=== PATIENT | male | born 1980 | race Caucasian/White ===

== ENCOUNTER 2019-04-22 12:50 | Outpatient (CLI) | payer OTHER ==
[2019-04-22] MEDS ORDERED: GADOBUTROL 10 MMOL/10 ML VIAL ONE (13:45)
[2019-04-22] MEDS ORDERED: GADOBUTROL 10 MMOL/10 ML VIAL IVP ONE (14:08)
--- NOTE | 2019-04-23 07:56 | MRI Report ---
Reason: LT FACIAL NUMBNESS Procedure Date: 04/22/2019 Accession Number: [id number] / [id number] Procedure: MRI - Brain W/WO CPT Code: Final Report FULL RESULT: EXAM: MRI BRAIN WITHOUT AND WITH CONTRAST EXAM DATE: 04/22/2019 02:14 PM. CLINICAL HISTORY: Left facial numbness. COMPARISON: None. TECHNIQUE: Multiplanar, multisequence T1-weighted and fluid-sensitive MR sequences of the brain were performed before and after administration of intravenous contrast. Sequences optimized for routine evaluation. Other: None. IV Contrast: 10 mL Gadavist. FINDINGS: Brain Volume: Normal for age. Parenchyma: No acute hemorrhage, mass, or infarct. A 12 mm wedge-shaped focus of decreased T1 and increased FLAIR signal is seen in the anterior left putamen. Patchy similar signal abnormality is seen in the left [place] radiata superior to the left lentiform nucleus. No abnormal enhancement. Skull Base: No abnormal dural thickening or enhancement. The floor of the middle cranial fossa is intact. The foramen ovale and infratemporal fossa are unremarkable. The foramen rotundum and pterygopalatine fossa are unremarkable. The cisternal segment of trigeminal nerves as well as Meckel's cave are symmetric and unremarkable. The skull base of the posterior fossa is intact. The jugular foramen and hypoglossal canal are unremarkable. Ventricles/Cisterns: Mild ventriculomegaly is seen. Enlargement of the superior and posterior lateral ventricles is seen without dilatation of the temporal horns. No transependymal CSF flow is appreciated. No abnormal extra-axial fluid collection or hemorrhage. Orbits: Note is made of disconjugate gaze. Orbits are otherwise unremarkable. Sella Turcica: The pituitary gland, cavernous sinuses, suprasellar cistern and optic chiasm are unremarkable. IAC: Symmetric and unremarkable. Vasculature: Normal signal flow void is seen in the major arterial structures at the skull base. The dural sinuses are patent and enhance normally. Sinuses: No acute sinus disease. Bones: Oval 7 mm focus of expansile signal abnormality is seen in the lateral right supraorbital ridge. This demonstrates increased T2/FLAIR signal. Isointense T1 signal with enhancement is noted. Overlying cortical thinning is present. Other: The visualized nasopharynx and infratemporal fossa are unremarkable. IMPRESSION: 1. No acute intracranial abnormality. No abnormal enhancement. 2. Wedge-shaped focus of signal abnormality in the anterior left putamen. Patchy signal abnormality in the left [place] radiata superior to the left lentiform nucleus. This may represent sequela of old ischemia. 3. Ventriculomegaly with prominence to the lateral ventricles. Findings may be secondary to central atrophy. Compensated hydrocephalus could be considered as well. No transependymal CSF flow or temporal horn dilatation is seen to suggest acute hydrocephalus. 4. 7 mm focus of bone marrow signal abnormality in the lateral right supraorbital ridge. This may represent benign process such as hemangioma. If the patient has an oncologic history, correlation with bone scan could be considered. RADIA
== END 2019-04-22 12:51 | disposition home or self-care (01) ==
LOC: DI 12:50
PROVIDERS: ATTEND Family Medicine
DX: G93.89 Other specified disorders of brain (principal); R20.0 Anesthesia of skin
CPT/HCPCS: 70553; A9585

== ENCOUNTER 2019-05-16 17:16 | Outpatient (CLI) | payer OTHER ==
[2019-05-16] MEDS ORDERED: GADOBUTROL 10 MMOL/10 ML VIAL ONE (18:42)
[2019-05-16] MEDS ORDERED: GADOBUTROL 10 MMOL/10 ML VIAL IVP ONE (18:55)
--- NOTE | 2019-05-17 22:38 | MRI Report ---
Reason: PARESTHESIA, FATIGUE, WEAKNESS Procedure Date: 05/16/2019 Accession Number: [id number] / [id number] Procedure: MRI - Cervical Spine W/WO CPT Code: Final Report FULL RESULT: EXAM: MRI CERVICAL SPINE WITHOUT AND WITH CONTRAST EXAM DATE: 05/16/2019 07:17 PM. CLINICAL HISTORY: Paresthesia, fatigue, weakness. COMPARISON: Brain MRI 04/22/2019. TECHNIQUE: Multiplanar, multisequence T1-weighted and fluid-sensitive sequences of the cervical spine before and after administration of intravenous contrast. Other: None. IV contrast: 10 mL Gadavist. FINDINGS: Evaluation mildly limited due to motion artifact, particularly on the axial sequences. Neurologic Structures: The visualized posterior fossa structures are unremarkable. Prominent lateral ventricles partially visualized on the digester cook sequence. This was present on prior brain MRI. No gross signal abnormality visualized in the cervical cord, however, evaluation limited due to artifact. Alignment: Straightening of the normal cervical lordosis. No spondylolisthesis. Bone Marrow: No gross fractures or bone lesions. Mild degenerative endplate edema at C6-C7, asymmetric to the right. Underlying congenital central canal stenosis with osseous diameter at C3 measuring 12 mm. Interspace Levels/Facets: C1-C2: Mild degenerative changes anteriorly. C2-C3: Minimal disk osteophyte complex. Mild facet hypertrophy. Minimal central canal stenosis. Mild bilateral neural foramen stenosis. C3-C4: Small disk osteophyte complex. Mild facet hypertrophy. Minimal central canal stenosis. Moderate right and mild left neural foramen stenosis. C4-C5: Small disk osteophyte complex. Mild facet hypertrophy. Minimal central canal stenosis. Moderate right and mild left neural foramen stenosis. C5-C6: Mild disk height loss. Small disk osteophyte complex. Mild facet hypertrophy. Minimal central canal stenosis. Mild bilateral neural foramen stenosis. C6-C7: Mild disk height loss. Small to moderate disk osteophyte complex. Mild facet hypertrophy. Mild central canal stenosis with mass effect on the cervical cord. Moderate right and mild left neural foramen stenosis. C7-T1: Small disk osteophyte complex. Mild facet hypertrophy. Minimal central canal stenosis. Moderate right and mild left neural foramen stenosis. Spinal Canal: No enhancing lesions within the spinal canal. No epidural abscess. Musculature: No edema, enhancement, or fatty atrophy. Other: The paravertebral and prevertebral soft tissues are unremarkable. IMPRESSION: 1. Underlying congenital central canal stenosis. 2. Mild to moderate degenerative disk and facet changes. 3. Mild central canal stenosis at C6-C7. Minimal canal stenosis throughout the remaining levels. 4. Varying degrees of neural foramen stenosis, moderate at C3-C4 on the right, C4-C5 on the right and C6-C7 on the right. 5. Limited evaluation for cord signal abnormality due to artifact. No gross signal abnormality visualized. RADIA
--- NOTE | 2019-05-17 22:40 | MRI Report ---
Reason: PARESTHESIA, FATIGUE, WEAKNESS Procedure Date: 05/16/2019 Accession Number: [id number] / [id number] Procedure: MRI - Thoracic Spine W/WO CPT Code: Final Report FULL RESULT: EXAM: MRI THORACIC SPINE WITHOUT AND WITH CONTRAST EXAM DATE: 05/16/2019 07:15 PM. CLINICAL HISTORY: Paresthesia, fatigue, weakness. COMPARISONS: MRI brain 04/22/2019. TECHNIQUE: Multiplanar, multisequence T1-weighted and fluid-sensitive sequences of the thoracic spine from C7 to L1 before and after administration of intravenous contrast. Other: None. IV contrast: 10 mL Gadavist. FINDINGS: Evaluation on the axial sequence is mildly limited due to motion and artifact. Spinal Cord: No gross signal abnormality visualized in the cervical cord. Evaluation on the axial sequence is limited due to artifact. Alignment: Mild S-Shaped cervicothoracic curvature with complex left component lower cervical and convex-right component of her thoracic spine. No spondylolisthesis. Bone Marrow: No gross fracture. Small Schmorl's nodes at multiple levels. Subtle bone marrow edema and enhancement at the anterior inferior aspect T7 vertebral body with subtle endplate irregularity. Moderate bone marrow edema and enhancement at the anterior inferior aspect of T8 vertebral body. Possible subtle endplate irregularity at this site. Subtle fatty changes at the superior endplate of T11. Disk Levels/Facets: Mild degenerative disk and facet changes throughout the thoracic spine. Small left paracentral disk protrusion at T4-T5 contributes to minimal central canal stenosis with subtle mass effect on the thoracic cord. Disk osteophyte complexes and facet hypertrophy at T8-T9, T9-T10, and T10-T11 contribute to minimal central canal stenosis. Spinal Canal: No enhancing masses within the spinal canal. No epidural abscess. Musculature: No edema, enhancement, or fatty atrophy. Other: The visualized lungs, mediastinum, and abdominal cavity are unremarkable. IMPRESSION: 1. Mild degenerative disk and facet changes in the thoracic spine. 2. Small left paracentral disk protrusion at T4-T5 contributes to minimal central canal stenosis. 3. Disk osteophyte complexes and facet hypertrophy at T8-T9, T9-T10, and T10-T11 contribute to minimal central canal stenosis. RADIA
== END 2019-05-16 17:17 | disposition home or self-care (01) ==
LOC: DI 17:16
PROVIDERS: ATTEND Psychiatry & Neurology Neurology
DX: M50.322 Other cervical disc degeneration at C5-C6 level (principal); M48.02 Spinal stenosis, cervical region; M47.812 Spondylosis without myelopathy or radiculopathy, cervical region; M51.24 Other intervertebral disc displacement, thoracic region; M47.814 Spondylosis without myelopathy or radiculopathy, thoracic region; M48.04 Spinal stenosis, thoracic region
CPT/HCPCS: 72156; 72157; A9585

== ENCOUNTER 2022-10-30 08:24 | Outpatient (CLI) | payer OTHER | END 2022-10-30 08:25 | disposition home or self-care (01) | LOC: LAB.N 08:24 | PROVIDERS: ATTEND Family Medicine | DX: R68.82 Decreased libido (principal) | CPT/HCPCS: 36415; 84403 ==

== ENCOUNTER 2022-11-16 11:58 | Outpatient (CLI) | payer OTHER | END 2022-11-16 11:59 | disposition home or self-care (01) | LOC: LAB.N 11:58 | PROVIDERS: ATTEND Family Medicine | DX: R68.82 Decreased libido (principal) | CPT/HCPCS: 36415; 84403 ==

== ENCOUNTER 2022-12-05 11:08 | Outpatient (CLI) | payer OTHER | END 2022-12-05 11:09 | disposition home or self-care (01) | LOC: LAB.N 11:08 | PROVIDERS: ATTEND Family Medicine | DX: R68.82 Decreased libido (principal) | CPT/HCPCS: 36415; 83002; 84403 ==

== ENCOUNTER 2023-12-07 05:31 | Emergency (ER) | payer OTHER ==
--- NOTE | 2023-12-07 05:44 | ED Physician Documentation ---
PD HPI HEAD INJURY - Stated complaint Stated Complaint: L EYE LAC - Chief complaint Chief Complaint: Laceration - History obtained from History obtained from: Patient - History of Present Illness Mechanism of head injury: Laceration (his cat was caught in a cat trap and it got anxious as he released it (there had been a stray outside that he was trying to capture instead) and scratched/bit at his. Several small lacs/punctures on forehead and cheek. But main laceration is left upper eyelid norizontally. pt denies injury to eye.) Where head injury occurred: Home Timing - onset: How many hours ago (1), Today (he did clean the laceration after it and then here for eval/presume suturing.) Location of injury: Left Associated symptoms: No: LOC, AMS Contributing factors: No: Anticoagulated PD PAST MEDICAL HISTORY - Past Medical History Past Medical History: No - Past Surgical History Past Surgical History: No - Present Medications Home Medications: Ambulatory Orders Medication Instructions Recorded Confirmed Amox/Clav 875/125 [Augmentin] 1 each PO BID #10 tablet 12/07/23 - Allergies Allergies/Adverse Reactions: Allergies Allergy/AdvReac Type Severity Reaction Status Date / Time No Known Drug Allergies Allergy Verified 12/07/23 05:39 - Social History Does the pt smoke?: No Smoking Status: Never smoker - Immunizations Immunizations are current?: Yes PD ED PE NORMAL - Vitals Vital signs reviewed: Yes - General General: Alert and oriented X 3, No acute distress, Well developed/nourished - HEENT HEENT: PERRL, EOMI (no pain with eye movement. ), Other (left eyelid with laceration full thickness skin with edges slightly apart, and mild bleeding. Horizontally oriented, 3 cm (the width of the eyelid). Not full thickness through lid (no lac inside). no FB. He can blink fine. small lac forehead and lateral periorbital. ) Results - Vitals Vitals: Vital Signs - 24 hr 12/07/23 12/07/23 05:37 06:38 Temperature 36.1 C L Heart Rate 80 78 Respiratory 16 18 Rate Blood Pressure 188/98 H 178/95 H O2 Saturation 98 99 Oxygen O2 Source Room air Procedures - Laceration (location) left upper eyelid Length in cm: 3 Wound type: Linear, Into subcut fat, Clean Neurovascular status: Sensory intact, Motor intact Anesthesia: Lidocaine 1% with epi Wound preparation: Wound explored, To the base, Other (washed with tap water) Skin layer closure: Nylon, Running, Size #-0 - enter number (6), Sutures - enter # (15) Other: Patient tolerated well, No complications, Neurovascular intact, Tetanus UTD PD Medical Decision Making - ED course Complexity details: considered differential (lac upper eyeli mainly and small ones face and forehead. No injury to eye itself. sutured as not amenable to tape/glue due to bleeding and location. Discussed abx with pt and he is in favor. ), d/w patient ED course: pt was not sure if eyelid lac from claw or tooth, but abx appropriate in either. Departure - Departure Disposition: 01 Home, Self Care Clinical Impression: Eyelid laceration, Cat bite of face Condition: Stable Record reviewed to determine appropriate education?: Yes Prescriptions: Amox/Clav 875/125 [Augmentin] 1 each PO BID #10 tablet Comments: It is okay to wash and shower. Clean off the wound twice a day with soap and water, or peroxide and water. Apply some antibiotic ointment to it to keep it moist. Also to watch for signs of infection such as purulence, redness or increasing pain. Return to your primary care or the ER at the specified time for suture removal. Suture removal 7 to 10 days. Tylenol ibuprofen if needed for pains. Augmentin twice daily for 5 days to reduce the chance of infection. Forms: PCP List Discharge Date/Time: 12/07/23 06:38
[2023-12-07] MEDS: AMOX/CLAV 875 MG/125 MG TABLET PO STA (06:32)
[2023-12-07 06:55] VITALS: BP 178/95; O2SAT 99
== END 2023-12-07 06:38 | disposition home or self-care (01) ==
LOC: ED 05:31
DX: S01.112A Laceration without foreign body of left eyelid and periocular area, initial encounter (principal); S00.87XA Other superficial bite of other part of head, initial encounter; W55.01XA Bitten by cat, initial encounter
CPT/HCPCS: 12013; 99283; A9270